=== PATIENT | male | born 1945 | race Caucasian/White ===

== ENCOUNTER 2016-12-07 04:49 | Inpatient (IN) | payer MEDICARE, OTHER ==
[~2016-12-07] VITALS: Ht 177.8 cm; Wt 78.2 kg
[~2016-12-07 04:49] MED LIST: BAYER CHEWABLE81 MG PO; CRESTOR10 MG PO; PRILOSEC20 MG PO; PROPRANOLOL HCL60 M1 PO; PROZAC20 MG PO; XANAX0.5 MG PO
[2016-12-07 05:18] LABS: APPEARANCE CLEAR (CLEAR); BILIRUBIN NEGATIVE (NEGATIVE); COLOR YELLOW (YELLOW); GLUCOSE NEGATIVE (NEGATIVE); KETONE NEGATIVE (NEGATIVE); LEUKOCYTE ESTERASE NEGATIVE (NEGATIVE); NITRITE NEGATIVE (NEGATIVE); PROTEIN NEGATIVE (NEGATIVE); UROBILINOGEN NORMAL (NORMAL)
[2016-12-07 05:26] LABS: BASOPHILS 0.1 % (0.0-2.0); EOSINOPHILS 0 % (0-7); HEMOGLOBIN 13.9 g/dL (13.5-17.5); LYMPHOCYTES 4.3 % (15-50); MCHC 34.8 g/dL (31.0-37.0); MEAN PLATELET VOLUME 9.6 fL (7.4-10.4); MONOCYTES 7.1 % (2-11); NEUTROPHILS 87.5 % (40-80); PLATELET COUNT 107 10x3/uL (130-400); RBC 4.21 10x6/uL (4.20-6.10); RDW 14.7 % (11.5-14.5); WBC 18.4 10x3/uL (4.8-10.8)
[2016-12-07 05:36] LABS: ALBUMIN 3.5 g/dL (3.4-5.0); ANION GAP 13.7 mmol/L (8-16); BILIRUBIN - TOTAL 1.8 mg/dL (0.2-1.3); CALCIUM 8.6 mg/dL (8.5-10.1); CARBON DIOXIDE 26.8 mmol/L (21.0-32.0); CREATININE - SERUM 1.1 mg/dL (0.6-1.3); POTASSIUM - SERUM 3.5 mmol/L (3.5-5.1); PROTEIN - SERUM 7.2 g/dL (6.4-8.2)
[2016-12-07 08:00] VITALS: BP 184/86
--- NOTE | 2016-12-07 11:17 | NUR ---
ARRIVE TO ROOM VIA WHEELCHAIR FROM ER. REPORT GIVEN BY ANDREA POE. ALERT AND ORIENTED X4. LT FA PATENT SL. SWAB CAP ON. AMBULATES TO BED. GAIT STEADY. DENIES SOB. DENIES PAIN. COMPLAINS OF BEING COLD. EXPLAIN WHY NO EXTRA BLANKETS GIVEN DUE TO 100.2 TEMPERATURE. CONITNUE ADMISSION PROCESS. REFUSE SCDs DUE TO REDNESS AND SWELLING IN RT ANKLE. BED LOCKED AND LOW. CALL LIGHT IN REACH. TWO SIDERAILS UP.
[2016-12-07] MEDS ORDERED: MYSOLINE 50 MG50 MG PO (11:58)
[2016-12-07] MEDS ORDERED: VITAMIN B-121000 MCG PO (11:58)
[2016-12-07 13:13] VITALS: BP 165/73; BMI 25.8
[2016-12-07 15:46] VITALS: BP 194/94
--- NOTE | 2016-12-07 19:44 | NUR ---
RESUMED CARE OF PT, PT SLEEPING, IV-LFA-SL, CALL LIGHT IN REACH, BED IS LOW, SRX2, WILL CONTINUE TO MONITOR
[2016-12-08] VITALS: BP 179/81
--- NOTE | 2016-12-08 02:31 | NUR ---
PT LAYING IN BED NO DISTRESS OBSERVED CALL LIGHT INREA SRX2 BED LOW AND LOCKED WILL MONITOR
[2016-12-08 04:00] VITALS: BP 147/70
[2016-12-08 05:51] LABS: BASOPHILS 0.1 % (0.0-2.0); EOSINOPHILS 0 % (0-7); HEMATOCRIT 38.3 % (42.0-54.0); HEMOGLOBIN 13.2 g/dL (13.5-17.5); IMMATURE GRANULOCYTES 0.3 % (0-5); LYMPHOCYTES 8.2 % (15-50); MCH 33.1 pg (26.0-34.0); MCHC 34.5 g/dL (31.0-37.0); MEAN PLATELET VOLUME 10.3 fL (7.4-10.4); MONOCYTES 7.4 % (2-11); RBC 3.99 10x6/uL (4.20-6.10); RDW 14.6 % (11.5-14.5); WBC 14.4 10x3/uL (4.8-10.8)
[2016-12-08 06:09] LABS: CALC OSMOLALITY 269 mosm/kg (275-300); CARBON DIOXIDE 27.6 mmol/L (21.0-32.0); CHLORIDE - SERUM 97 mmol/L (98-107); GLUCOSE 83 mg/dL (74-106); POTASSIUM - SERUM 3.4 mmol/L (3.5-5.1); SODIUM 136 mmol/L (136-145); UREA NITROGEN 10 mg/dL (7-18); eGFR NON AFRICAN AMERICAN 79 mL/min (90-120)
[2016-12-08 06:21] LABS: PLATELET COUNT 82 10x3/uL (130-400)
[2016-12-08 07:33] LABS: PLATELET ESTIMATE DECREASED
[2016-12-08 07:46] VITALS: BP 168/78
--- NOTE | 2016-12-08 08:24 | HP ---
PATIENT: SHADY VELEZ MEDICAL RECORD: [id number] ACCOUNT: [id number] LOCATION:[address] : 49 ADMISSION DATE: 12/07/16 HISTORY AND PHYSICAL EXAMINATION Admission History and Physical DATE OF ADMISSION: 12/07/2016 CHIEF COMPLAINT: Nausea, vomiting, fever, cough for 3 days. HISTORY OF PRESENT ILLNESS: This is a 71-year-old white male who gets his medical care at the [facility] in [place], he lives in [place]. He started with acute onset of fevers, chills, nausea, vomiting, and cough about 10:00 p.m. on 12/04/2016. He came to the ER last night or early this morning with above complaints. Upon presentation, his temperature was 100.9 and a blood pressure of 180/103. His temperature went up to 103.5 while in the ER. His influenzae tests were negative. Chest x-ray did not show any acute infiltrate. His sodium was little low at 130. White count is up to 18,000 and low platelets at 107,000 and he also was noted to have pain and swelling and redness to the right ankle. He denies any trauma. He states this all started about the same time that his other symptoms started on Wednesday night. He is admitted for further treatment. PAST MEDICAL HISTORY: Hypertension, hyperlipidemia, anxiety and depression, and also had reflux. PAST SURGICAL HISTORY: Lizbeth fundoplication and he had a ganglion cyst removed. ALLERGIES: SHELLFISH. HOME MEDICATIONS: Aspirin 81 mg once a day, omeprazole 20 mg twice a day, Crestor 10 mg once a day, propranolol 60 mg twice a day, primidone 50 mg once a day, vitamin B12 once a day. HABITS: Former smoker, quit 27 years ago. Has an occasional beer. No drugs. SOCIAL HISTORY: He is , retired . FAMILY HISTORY: Father at 79 of an CA. He also had Parkinson's. Mother at 99 of old age. She had a pacemaker placed and has lower extremity edema. One sister with heart trouble, another with mental problems. Brother was injured in the war and has a lot of resultant problems from that. REVIEW OF SYSTEMS: GENERAL: No major weight changes. HEENT: No sinus or allergy problems. RESPIRATORY: No history of emphysema or asthma. CARDIAC: No chest pain or palpitations. GASTROINTESTINAL: Has history of reflux and has had a Lizbeth fundoplication. GENITOURINARY: No significant problems there. MUSCULOSKELETAL: No significant arthritic aches and pains. NEUROLOGIC: No migraines or seizures. PSYCHIATRIC: Has anxiety and depression. HISTORY AND PHYSICAL [id number] VELEZSHADY Cross PHYSICAL EXAMINATION: VITAL SIGNS: Temperature 98.2, pulse 91, respirations 16, blood pressure 165/73. GENERAL: He is awake and alert, lying on right side. He is feeling better since he has some IV fluids in. HEENT: Grossly within normal limits. NECK: Supple with no bruits. HEART: Regular rate and rhythm without murmur. LUNGS: Fairly clear. ABDOMEN: Soft, flat, nontender. EXTREMITIES: Right lower extremity, he has increased erythema, some mild swelling and redness to the lateral aspect of the ankle. There is no open wound. LABORATORY DATA: Urinalysis is normal. Basic metabolic panel is all okay except sodium was 130. LFTs were okay except total bilirubin a little elevated at 1.8. CBC with a white count of 18,400, hemoglobin 13.9, platelets number 107,000. DIAGNOSTIC DATA: Chest x-ray shows no acute process. ASSESSMENT: 1. Fever, chills, nausea, vomiting, and cough that sounds like influenza. His rapid influenza test was negative and he is out of the 48-hour window of opportunity to treat. 2. Cellulitis of the right foot and ankle. 3. Bronchitis. PLAN: Start him on antibiotics, nausea medicine and IV fluids. Other tests and procedures as warranted. TRANSINT:[id number] Voice Confirmation ID: [id number] DOCUMENT ID: [id number] LULY PEREIRA MD at 0824 CC: [id number] DICTATION DATE: 12/07/161422 LAMBSKIN TRIMMER: 12/07/16 1457 ADM IN [facility] [address] [place] [address]
[2016-12-08 11:37] VITALS: BP 146/73
[2016-12-08 13:41] VITALS: Ht 177.8 cm; Wt 78.2 kg
[2016-12-08 15:26] VITALS: BP 181/81
--- NOTE | 2016-12-08 18:17 | NUR ---
RESTING IN BED. ALERT AND ORIENTED X4. DENIES SOB. RT LEG INFECTION SPREADING UP LEG. NEW ANTIBIOTIC ORDERED PER . INTERMITTENT RT LEG DISCOMFORT. DENIES NEEDING PAIN MEDICATION. CONTINUE PLAN OF CARE. BED LOCKED AND LOW. CALL LIGHT IN REACH. TWO SIDERAILS UP. RECIEVES LOVENOX INJ.
[2016-12-08 19:00] VITALS: BP 169/77
--- NOTE | 2016-12-08 20:00 | NUR ---
PT AWAKE, ALERT, ORIENTED, DENIES ANY NEEDS. CONTINUE TO MONITOR CLOSELY.
[2016-12-09] VITALS: BP 151/77
--- NOTE | 2016-12-09 00:50 | NUR ---
PT WAS FOUND IN THE [place], CONFUSED, DISORIENTED, JEANS OVER HIS SCRUB PANTS AND HOSPITAL GOWN ON, WITH HIS PERSONAL BELONGINGS BAG. WHEN ASKED IF HE WAS OK, PT STATED THAT HE WOKE UP OUTSIDE AND DID NOT KNOW WHERE HE IS AT THIS TIME. PT WAS RETURNED TO HIS ROOM WITHOUT ANY DIFFICULTY. PT DID DEFICATE ON HIMSELF DURING THIS BOUT OF CONFUSION. PT DID RECEIVE PRN AMBIEN FOR SLEEP DURING HIS 2100 MEDICATION ADMINISTRATION. PT WAS CLEANED UP, PLACED BACK INTO BED, BED ALARM ON, DOOR OPEN, CONTINUE TO MONITOR CLOSELY AND FREQUENTLY.
--- NOTE | 2016-12-09 03:39 | NUR ---
PT REMAINS CONFUSED AND DISORIENTED, HE CONTINUES TO GET OUT OF BED NOT KNOWING WHERE HE IS. PT HAS BEEN PLACED BACK INTO BED WITHOUT DIFFICULTY, BED ALARM ON. CONTINUE TO MONITOR CLOSELY.
[2016-12-09 04:00] VITALS: BP 159/72
[2016-12-09 07:14] LABS: CALC OSMOLALITY 263 mosm/kg (275-300); CHLORIDE - SERUM 96 mmol/L (98-107); CREATININE - SERUM 0.9 mg/dL (0.6-1.3); GLUCOSE 89 mg/dL (74-106); SODIUM 133 mmol/L (136-145); UREA NITROGEN 11 mg/dL (7-18); eGFR NON AFRICAN AMERICAN 89 mL/min (90-120)
[2016-12-09 07:17] LABS: BASOPHILS 0.1 % (0.0-2.0); EOSINOPHILS 0.1 % (0-7); HEMATOCRIT 35.6 % (42.0-54.0); HEMOGLOBIN 12.4 g/dL (13.5-17.5); IMMATURE GRANULOCYTES 0.4 % (0-5); LYMPHOCYTES 10.3 % (15-50); MCHC 34.8 g/dL (31.0-37.0); MCV 94.7 fL (80.0-100.0); MEAN PLATELET VOLUME 10.6 fL (7.4-10.4); MONOCYTES 11.3 % (2-11); NEUTROPHILS 77.8 % (40-80); PLATELET COUNT 91 10x3/uL (130-400); RBC 3.76 10x6/uL (4.20-6.10); RDW 14.2 % (11.5-14.5); WBC 11.3 10x3/uL (4.8-10.8)
[2016-12-09 08:02] VITALS: BP 155/77
[2016-12-09 16:00] VITALS: BP 147/68
--- NOTE | 2016-12-09 19:41 | NUR ---
RESUMED CARE OF PT, LYING IN BED RESPIRATIONS EVEN AND UNLABORED ON ROOM AIR. LEFT FOREARM SALINE LOCKED. NO NEEDS VOICED AT THIS TIME. WILL CONTINUE TO MONITOR. SEE NURSE ASSESSMENT. CALL LIGHT IN REACH.
[2016-12-09 20:00] VITALS: BP 171/83
[2016-12-10] VITALS: BP 181/91
[2016-12-10 04:00] VITALS: BP 167/80
--- NOTE | 2016-12-10 04:10 | NUR ---
DIETARY COOK AT BEDSIDE TO OBTAIN VITALS, CALL LIGHT IN REACH. WILL CONTINUE WITH PLAN OF CARE.
[2016-12-10 06:07] LABS: BASOPHILS 0.2 % (0.0-2.0); EOSINOPHILS 0.4 % (0-7); HEMOGLOBIN 11.8 g/dL (13.5-17.5); IMMATURE GRANULOCYTES 0.7 % (0-5); LYMPHOCYTES 15.4 % (15-50); MCH 32.3 pg (26.0-34.0); MCHC 34.7 g/dL (31.0-37.0); MCV 93.2 fL (80.0-100.0); MONOCYTES 18.1 % (2-11); NEUTROPHILS 65.2 % (40-80); PLATELET COUNT 90 10x3/uL (130-400); RBC 3.65 10x6/uL (4.20-6.10); RDW 13.9 % (11.5-14.5); WBC 9.4 10x3/uL (4.8-10.8)
[2016-12-10 06:33] LABS: CALC OSMOLALITY 263 mosm/kg (275-300); CALCIUM 7.9 mg/dL (8.5-10.1); CARBON DIOXIDE 28.4 mmol/L (21.0-32.0); CHLORIDE - SERUM 95 mmol/L (98-107); CREATININE - SERUM 0.9 mg/dL (0.6-1.3); GLUCOSE 95 mg/dL (74-106); SODIUM 132 mmol/L (136-145); UREA NITROGEN 9 mg/dL (7-18); eGFR NON AFRICAN AMERICAN 89 mL/min (90-120)
--- NOTE | 2016-12-10 07:12 | NUR ---
PT SITTING UP IN BED DENIES NEEDS AT THIS TIME WILL CONTINUE TO MONITOR.
[2016-12-10 08:02] VITALS: BP 154/79
[2016-12-10 12:14] VITALS: BP 148/66
--- NOTE | 2016-12-10 12:51 | NUR ---
Nutrition follow-up: Diet: Regular with 1 beer @ dinner; Ensure with meals PO intake ~25% of meals at this time +BM Labs reviewed Pt has been confused per nursing PO intake poor at this time Will continue to provide food choices with selective menus and nutritional supplements. Pt may benefit from an appetite stimulant. RDN following.
[2016-12-10 16:23] VITALS: BP 167/74
--- NOTE | 2016-12-10 17:46 | NUR ---
PT SITTING UP IN BED LYDIA NEEDS
--- NOTE | 2016-12-10 19:30 | NUR ---
RESUMED CARE, IV-LFA-SL, SLEEPING, BED IS LOW, SRX2, CALL LIGHT IN REACH, WILL CONTINUE TO MONITOR
[2016-12-10 20:00] VITALS: BP 186/93
[2016-12-11] VITALS: BP 164/84
[2016-12-11 04:00] VITALS: BP 146/72
--- NOTE | 2016-12-11 04:04 | NUR ---
NATURAL GAS ENGINEER AT BEDSIDE TO OBTAIN VITALS, CALL LIGHT IN REACH. WILL CONTINUE TO MONITOR.
--- NOTE | 2016-12-11 04:16 | NUR ---
LYING QUIETLY, DENIES ANY NEEDS, CALL LIGHT IN REACH, BED IS LOW
[2016-12-11 06:21] LABS: BASOPHILS 0.3 % (0.0-2.0); EOSINOPHILS 1.2 % (0-7); HEMATOCRIT 35.6 % (42.0-54.0); HEMOGLOBIN 12.3 g/dL (13.5-17.5); IMMATURE GRANULOCYTES 0.5 % (0-5); LYMPHOCYTES 20.4 % (15-50); MCH 32.5 pg (26.0-34.0); MCHC 34.6 g/dL (31.0-37.0); MCV 94.2 fL (80.0-100.0); MEAN PLATELET VOLUME 9.9 fL (7.4-10.4); MONOCYTES 20.9 % (2-11); NEUTROPHILS 56.7 % (40-80); PLATELET COUNT 107 10x3/uL (130-400); RBC 3.78 10x6/uL (4.20-6.10); RDW 13.8 % (11.5-14.5)
[2016-12-11 06:23] LABS: WBC 5.9 10x3/uL (4.8-10.8)
[2016-12-11 06:43] LABS: CALC OSMOLALITY 264 mosm/kg (275-300); CALCIUM 7.9 mg/dL (8.5-10.1); CARBON DIOXIDE 28.7 mmol/L (21.0-32.0); CHLORIDE - SERUM 97 mmol/L (98-107); CREATININE - SERUM 0.9 mg/dL (0.6-1.3); GLUCOSE 116 mg/dL (74-106); POTASSIUM - SERUM 3.1 mmol/L (3.5-5.1); SODIUM 133 mmol/L (136-145); UREA NITROGEN 8 mg/dL (7-18); eGFR NON AFRICAN AMERICAN 89 mL/min (90-120)
[2016-12-11 07:51] VITALS: BP 175/78
--- NOTE | 2016-12-11 08:06 | NUR ---
AM ROUNDING- PT LAYING IN BED ON BACK RESTING WITH EYES OPEN. DENIES ANY NEED AT CURRENT TIME. IV SEEN TO LEFT FOREARM SALINE LOCKED AND PATENT. ON ROOM AIR. NO MONITOR. REDNESS WITH SLIGHT SWELLING SEEN TO RIGHT LEG. PT IS ON LOVENOX INJECTIONS FOR DVT PREVENTION. WILL CONTINUE TO MONITOR
--- NOTE | 2016-12-11 08:28 | NUR ---
CALLED DR. HASKINS OFFICE TO INFORM HIM OF PTS POTASSIUM BEING 3.1. SPOKE WITH CAROLYN, HIS NURSE. CAROLYN STATED SHE WOULD LET HIM KNOW WHEN HE GOT TO THE OFFICE AND HAVE HIM CALL ME. AWAITING CALLBACK.
--- NOTE | 2016-12-11 09:06 | NUR ---
0900- DR. PEREIRA CALLED BACK WITH NEW ORDERS. DR. PEREIRA INFORMED ME TO PLACE PT ON EP. WILL DO ORDERED AND CONTINUE TO MONITOR.
[2016-12-11 12:00] VITALS: BP 139/74
[2016-12-11 15:58] VITALS: BP 155/72
--- NOTE | 2016-12-11 16:43 | NUR ---
Patient Name: SHADY VELEZ Admission Status: ER Accout number: [id number] Admission Date: 12-07-2016 : 1945 Admission Diagnosis:COUGH Attending: HAL Current LOS: 4 Anticipated DC Date: Planned Disposition: Home Primary Insurance: MEDICARE A & B Discharge Planning Comments: * Is the patient Alert and Oriented? Yes 0 * How many steps to enter\exit or inside your home? NONE 0 * PCP DR. ANGELICA AYALA, [facility], [place] 0 * Pharmacy [place] OR [facility] 0 * Preadmission Environment Home Alone 0 * ADLs Independent 0 * Equipment None 0 * Other Equipment [place] - MEDICAL EQUIPMENT PROVIDER 0 * List name and contact numbers for known caregivers / representatives who currently or will assist patient after discharge: LISA REYNAER, 0 * Community resources currently utilized Other 0 * Please name any agencies selected above. HOUSEKEEPING, PRIVATE PAY, 1X EVERY 2 WEEKS 0 * Additional services required to return to the preadmission environment? No 0 * Can the patient safely return to the preadmission environment? Yes 0 * Has this patient been hospitalized within the prior 30 days at any hospital? No 0 CM MET WITH PT IN ROOM TO DISCUSS DISCHARGE PLANNING AND NEEDS. PT REPORTS LIVING AT HOME INDEPENDENTLY AND ALONE. PT HAS NO MEDICAL EQUIPMENT AND NO OUTSIDE SERVICES ASSISTING IN THE HOME. CM DISCUSSED AVAILABILITY OF HOME HEALTH, REHAB SERVICES AND MEDICAL EQUIPMENT. PT DENIES DISCHARGE NEEDS, REPORTS HIS CAR IS HERE AND HE WILL DRIVE HIMSELF HOME AT DISCHARGE. PT DENIES DISHCARGE NEEDS, CM TO FOLLOW AND ASSIST IF NEEDED. Quarry Plant Crusher Operator: Rickie Shaikh
--- NOTE | 2016-12-11 17:59 | NUR ---
PT SITTING UP ON SIDE OF THE BED EATING DINNER. DENIES ANY NEED AT CURRENT TIME. WILL CONTINUE TO MONITOR.
[2016-12-11 20:00] VITALS: BP 169/84
--- NOTE | 2016-12-11 20:00 | NUR ---
RESTING IN BED. ALERT/ORIENTED. NONLABORED REPSIRATIONS ON ROOM AIR. SALINE LOCK TO LFA. CPOC. CALL LIGHT IN REACH.
[2016-12-12] VITALS: BP 164/71
[2016-12-12 04:00] VITALS: BP 168/80
[2016-12-12 06:51] LABS: HEMATOCRIT 35.8 % (42.0-54.0); HEMOGLOBIN 12.2 g/dL (13.5-17.5); MCH 32.5 pg (26.0-34.0); MCHC 34.1 g/dL (31.0-37.0); MCV 95.5 fL (80.0-100.0); MEAN PLATELET VOLUME 10.2 fL (7.4-10.4); PLATELET COUNT 107 10x3/uL (130-400); RBC 3.75 10x6/uL (4.20-6.10); RDW 14.1 % (11.5-14.5); WBC 4.8 10x3/uL (4.8-10.8)
--- NOTE | 2016-12-12 07:00 | NUR ---
RECEIVED REPORT. ASSUMED CARE OF PATIENT. CALL LIGHT WITHIN REACH. DENIES PAIN. RESP EVEN AND UNLABORED. PATEINT STATES HE FEELS 1000% BETTER THAN WHEN HE WALKED IN HERE. NO DISTRESS. REQUESTING FRESH ICE WATER AT THIS TIME.
[2016-12-12 07:07] LABS: CALC OSMOLALITY 273 mosm/kg (275-300); CALCIUM 7.8 mg/dL (8.5-10.1); CARBON DIOXIDE 27.2 mmol/L (21.0-32.0); CHLORIDE - SERUM 102 mmol/L (98-107); CREATININE - SERUM 0.8 mg/dL (0.6-1.3); GLUCOSE 93 mg/dL (74-106); SODIUM 138 mmol/L (136-145); UREA NITROGEN 7 mg/dL (7-18); eGFR NON AFRICAN AMERICAN > 90 mL/min (90-120)
[2016-12-12 07:13] LABS: POTASSIUM - SERUM 3.2 mmol/L (3.5-5.1)
[2016-12-12 07:18] LABS: EOSINOPHILS 1 % (0-7); LYMPHOCYTES 27 % (15-50); MONOCYTES 12 % (2-11); NEUTROPHILS 57 % (40-80); PLATELET ESTIMATE DECREASED
--- NOTE | 2016-12-12 07:35 | NUR ---
FRESH ICE WATER PROVIDED UPON REQUEST AT THIS TIME. NO DISTRESS.
[2016-12-12 08:02] VITALS: BP 184/84
[2016-12-12 11:18] VITALS: BP 129/66
--- NOTE | 2016-12-12 12:10 | NUR ---
RESTING IN BED WITH EYES OPEN. CONSUMING NOON MEAL. CALL LIGHT WITHIN REACH. RECEIVING IV VANC AT THIS TIME. NO DISTRESS.
--- NOTE | 2016-12-12 15:23 | NUR ---
PATIENT RESTING WELL IN BED WITH EYES OPEN. PATIENT DENIES PAIN. NO DISTRESS NOTED. CALL LIGHT WITH IN REACH. DENIES NEEDS AT THIS TIME.
[2016-12-12 15:50] VITALS: BP 138/74
--- NOTE | 2016-12-12 17:56 | NUR ---
SITTING TO SIDE OF BED, FINISHING PM MEAL. CALL LIGHT WITHIN REACH. DENIES NEEDS. DENIES PAIN. NO DISTRESS. PATIENT COMPLIMENTING ON HOW WELL HE IS BEING FED AT THE HOSPITAL. NO DISTRESS.
[2016-12-12 20:28] VITALS: BP 172/84
[2016-12-13 00:19] VITALS: BP 184/88
--- NOTE | 2016-12-13 03:59 | NUR ---
ASSESSED AT THE BEGINNING OF THE SHIFT. PT IS ALERT AND ORIENTED, ABLE TO VERBALIZE NEEDS. HE HAS HEALING CELLULITUS TO THE RIGHT LOWER LEG BUT THE EDEMA AND REDNESS HAVE GONE WAY DOWN. HE IS ABLE TO TURN AND REPOSITION HIMSELF FOR COMFORT AND GET UP TO THE BATHROOM AD VIRGEN. WE RESTARTED HIS IV TO TO THE LEFT HAND DUE TO THE REDNESS AROUND HIS ORIGINAL SITE ON HIS LEFT FOREARM. THE BED IS LOW, RAILS UP X'S 2 WITH THE CALL LIGHT AT HAND.
[2016-12-13 05:17] VITALS: BP 186/80
--- NOTE | 2016-12-13 07:05 | NUR ---
RECEIVED REPORT. ASSUMED CARE OF PATIENT. PATIENT WITH EYES OPEN, READING NEWSPAPER. RESP EVEN AND UNLABORED. CALL LIGHT WIHTIN REACH. DENIES NEEDS. NO DISTRESS.
[2016-12-13 07:41] VITALS: BP 172/78
[2016-12-13 11:23] VITALS: BP 129/67
--- NOTE | 2016-12-13 11:30 | NUR ---
PATIENT RESTING IN BED WITH EYES OPEN. CALL LIGHT WITHIN REACH. DENIES PAIN. NO DISTRESS.
[2016-12-13 15:24] VITALS: BP 118/57
--- NOTE | 2016-12-13 16:00 | NUR ---
CALLED AND SPOKE WITH BRENDA IN PHARMACY IN REGARDS TO ADMINISTERING 1600 DOSE OF VANCOMYCIN SINCE VANC TROUGH WAS HIGH THIS AM. BRENDA STATED THAT IT HAS BEEN 12 HOURS SINCE PRIOR ADMINISTRATION AND THE NUMBER DOSAGE/ NUMBER OF TIMES PER DAY HAS BEEN DECREASED BY HER DUE TO PHARMACY IS ADJUSTING THE DOSE. THANKED BRENDA FOR CLARIFICATION AND WILL ADMINISTER VANC DOSE DUE AT THIS TIME.
--- NOTE | 2016-12-13 18:45 | NUR ---
PATIENT RESTING IN BED WITH EYES OPEN. RESP EVEN AND UNLABORED. NO DISTRESS. DENIES NEEDS AT THIS TIME.
[2016-12-13 19:00] VITALS: BP 158/91
--- NOTE | 2016-12-13 19:41 | NUR ---
RESUMED CARE OF PT, LYING QUIETLY IN BED, DENIES ANY NEEDS,HAD DAY SHIFT CHARGE CELL PHONE, I TOOK CELL PHONE BACK TO HIM, IV-L.HAND-SL,DENIES ANY NEEDS, CALL LIGHT IN REACH, WILL CONTINUE TO MONITOR
[2016-12-14] VITALS (7 sets, daily range): BP systolic 134–177; BP diastolic 69–89
--- NOTE | 2016-12-14 03:50 | NUR ---
LYING QUIETLY , WATCHING TV, DENIES ANY NEEDS, CALL LIGHT IN REACH
--- NOTE | 2016-12-14 05:59 | NUR ---
NO CHANGES FROM PREVIOUS ASSESSMENT, CALL LIGHT IN REACH. WILL CONTINUE WITH PLAN OF CARE.
--- NOTE | 2016-12-14 07:30 | NUR ---
RESTING QUIETLY NAD DENIES ANY NEEDS OR DISCOMFORT
--- NOTE | 2016-12-14 07:58 | NUR ---
ASSESSEMENT DONE. PT A/O WATCHING TV. NO DISTRESS NOTED. DENIES NEEDS. WANTS TO GO HOME. RIGHT LOWER LEG WITH SLIGHT REDNESS, NO WARMTH, PITTING EDEMA. CALL LIGHT WITH IN REACH. WILL CONT. TO MONITOR.
--- NOTE | 2016-12-14 11:22 | NUR ---
PT SITTING UP IN BED WATCHING TV. A/O. DENIES NEEDS AT THIS TIME. CALL LIGHT WITH IN REACH. WILL CONT. TO MONITOR.
--- NOTE | 2016-12-14 17:15 | NUR ---
VANCOMYCIN IS NOT AVAILABLE. CALLED PHARMACY TO BRING UP.
--- NOTE | 2016-12-14 17:32 | NUR ---
PT SITTING ON SIDE OF BED. EATING SUPPER. REQUEST ICE WATER. DENIES OTHER NEEDS AT THIS TIME. CALL LIGHT WITH IN REACH. WILL CONT. TO MONITOR.
--- NOTE | 2016-12-14 19:37 | NUR ---
RESUMED CARE OF PT, IV-L.HAND-VANCOMYCIN INFUSING, DENIES ANY NEEDS, CALL LIGHT IN REACH, BED IS LOW, SRX2
--- NOTE | 2016-12-15 03:56 | NUR ---
SLEEPING WITHOUT ANY DISTRESS.
[2016-12-15 05:12] VITALS: BP 175/90
--- NOTE | 2016-12-15 06:18 | NUR ---
AWAKEN FOR AM MED. PATIENT STATES HE SLEPT WELL.
--- NOTE | 2016-12-15 07:00 | NUR ---
PT WAS RECEIVED AT BEGINNING OF SHIFT AWAKE AND IN BED. ORIENTED X 3. NO VOICED COMPLAINTS. LEFT HAND IV THAT IS SALINE LOCKED. WILL BE MONITORING AND ASSISTING PRN WITH ADL'S. NO SIGNS OF ANY DISCOMFORT OR DISTRESS. CALL LIGHT IS IN REACH.
[2016-12-15 08:31] VITALS: BP 171/84
[2016-12-15 11:42] VITALS: BP 159/76
--- NOTE | 2016-12-15 13:17 | NUR ---
Nutrition follow-up: Diet: Regular with 1 beer with dinner; Ensure with meals Labs reviewed PO intake 100% of meals +BM Wt: 172# RDN following.
[2016-12-15] MEDS ORDERED: VIBRAMYCIN 100100 MG PO (13:41)
--- NOTE | 2016-12-15 14:07 | NUR ---
DR. PEREIRA ROUNDED THIS AFTERNOON AND NEW ORDER RECEIVED FOR DISCHARGE.
--- NOTE | 2016-12-15 15:19 | NUR ---
Patient Name: SHADY VELEZ Encounter No: [id number] : 1945 Primary Insurance: MEDICARE A & B Anticipated DC Date: 12-15-2016 Planned Disposition: Home DCP follow-up note: CM MET WITH PT IN ROOM TO DISCUSS DISCHARGE NEEDS AND PLANNING. CM DISCUSSED AVAILABILITY OF HOME HEALTH, REHAB SERVICES AND MEDICAL EQUIPMENT. PT DENIES DISCHARGE NEEDS. PT WILL DRIVE HIMSELF HOME DISCHARGE. HIS CAR IS PARKED IN THE PARKING LOT. IMPORTANT MESSAGE FROM MEDICARE PROVIDED AND EXPLAINED. Rickie Shaikh, CASE MANAGEMENT
[2016-12-15 15:51] VITALS: BP 156/77
--- NOTE | 2016-12-15 16:05 | NUR ---
IV TO RT. HAND DCD CATH INTACT. NO REDNESS OR EDEMA AT SITE, SECURED WITH 2X2 AND PAPER TAPE.
== END 2016-12-15 16:54 | disposition home or self-care (01) | DRG 603 ==
LOC: D.ER 04:49 → D.M2 10:52
PROVIDERS: Family Medicine; ADMIT Family Medicine
DX: L03.115 Cellulitis of right lower limb (principal); I10 Essential (primary) hypertension; J20.9 Acute bronchitis, unspecified; E87.6 Hypokalemia; R51 Headache

== ENCOUNTER 2017-10-08 10:47 | Emergency (ER) | payer MEDICARE, OTHER ==
[2016-12-08 13:41] VITALS: BMI 25.8
[~2017-10-08 10:47] MED LIST changes: +MYSOLINE 50 MG50 MG PO; +VIBRAMYCIN 100100 MG PO; +VITAMIN B-121000 MCG PO
== END 2017-10-08 13:51 | disposition home or self-care (01) ==
LOC: D.ER 10:47
DX: L25.9 Unspecified contact dermatitis, unspecified cause (principal)

== ENCOUNTER 2019-05-20 03:49 | Emergency (ER) | payer MEDICARE, OTHER ==
[~2019-05-20] VITALS: Ht 177.8 cm; Wt 84.1 kg
[2019-05-20 03:52] VITALS: Ht 177.8 cm; Wt 84.1 kg
[2019-05-20] MEDS ORDERED: NEURONTIN 300300 MG PO (03:53)
[2019-05-20] MEDS ORDERED: OMEPRAZOLE20 M1 PO (03:53)
[2019-05-20] MEDS ORDERED: MYSOLINE 50 MG50 MG PO (03:54)
[2019-05-20] MEDS ORDERED: EFFEXOR100 MG PO (03:54)
[2019-05-20] MEDS ORDERED: PROZAC20 MG PO (03:54)
[2019-05-20] MEDS ORDERED: PROPRANOLOL HCL20 MG PO (03:54)
[2019-05-20] MEDS ORDERED: BUSPAR10 MG PO (03:55)
[2019-05-20 04:09] LABS: BASOPHILS 1.2 % (0-2); EOSINOPHILS 11.6 % (0-7); HEMATOCRIT 38.1 % (42.0-54.0); HEMOGLOBIN 13.7 g/dL (13.5-17.5); IMMATURE GRANULOCYTES 0.6 % (0-5); MCH 33.7 pg (26.0-34.0); MCV 93.6 fL (80.0-100.0); MEAN PLATELET VOLUME 9.3 fL (7.4-10.4); MONOCYTES 17.1 % (2-11); NEUTROPHILS 37.5 % (40-80); RBC 4.07 10x6/uL (4.20-6.10); RDW 12.1 % (11.5-14.5); WBC 5.2 10x3/uL (4.8-10.8)
[2019-05-20 04:11] LABS: PLATELET COUNT 148 10x3/uL (130-400)
[2019-05-20 04:21] LABS: APTT 30.2 SECONDS (22.8-39.4); PROTIME 12.7 SECONDS (11.6-15.0)
[2019-05-20 04:26] LABS: ALBUMIN 3.1 g/dL (3.4-5.0); ALKALINE PHOSPHATASE 56 U/L (46-116); ALT (SGPT) 29 U/L (10-68); BILIRUBIN - TOTAL 0.49 mg/dL (0.2-1.3); CALC OSMOLALITY 263 mosm/kg (275-300); CALCIUM 8.3 mg/dL (8.5-10.1); CHLORIDE - SERUM 97 mmol/L (98-107); CREATININE - SERUM 0.8 mg/dL (0.6-1.3); GLUCOSE 88 mg/dL (74-106); PROTEIN - SERUM 6.5 g/dL (6.4-8.2); SODIUM 134 mmol/L (136-145); UREA NITROGEN 4 mg/dL (7-18); eGFR NON AFRICAN AMERICAN > 90 mL/min (90-120)
[2019-05-20 04:39] LABS: CKMB 1.6 U/L (0.0-3.6); CREATINE KINASE 53 UL (21-232); PRO BNP 110 pg/mL (0-125); TROPONIN-I < 0.017 ng/mL (0.000-0.060)
[2019-05-20] MEDS ORDERED: AUGMENTIN 875-11 TAB PO (05:25)
[2019-05-20] MEDS ORDERED: ALBUTEROL SULF8.5 GM INH (05:26)
[2019-05-20 05:53] VITALS: BP 182/87
== END 2019-05-20 05:54 | disposition home or self-care (01) ==
LOC: D.ER 03:49
PROVIDERS: Family Medicine
DX: J40 Bronchitis, not specified as acute or chronic (principal); R05 Cough

== ENCOUNTER 2020-05-10 08:44 | Emergency (ER) | payer OTHER ==
[~2020-05-10] VITALS: Ht 177.8 cm; Wt 92.3 kg
[~2020-05-10 08:44] MED LIST changes: +ALBUTEROL SULF8.5 GM INH; +AUGMENTIN 875-11 TAB PO; +BUSPAR10 MG PO; +EFFEXOR100 MG PO; +NEURONTIN 300300 MG PO; +OMEPRAZOLE20 M1 PO; +PROPRANOLOL HCL20 MG PO
[2020-05-10 08:51] VITALS: BP 163/93; Ht 177.8 cm; Wt 92.3 kg
[2020-05-10 09:11] LABS: BASOPHILS 0.5 % (0-2); EOSINOPHILS 9.6 % (0-7); HEMATOCRIT 39.3 % (42.0-54.0); HEMOGLOBIN 13.8 g/dL (13.5-17.5); IMMATURE GRANULOCYTES 0.4 % (0-5); LYMPHOCYTES 19.7 % (15-50); MCH 33.7 pg (26.0-34.0); MCHC 35.1 g/dL (31.0-37.0); MCV 96.1 fL (80.0-100.0); MEAN PLATELET VOLUME 9.7 fL (7.4-10.4); MONOCYTES 15.5 % (2-11); NEUTROPHILS 54.3 % (40-80); PLATELET COUNT 136 10x3/uL (130-400); RBC 4.09 10x6/uL (4.20-6.10); RDW 13.2 % (11.5-14.5); WBC 7.5 10x3/uL (4.8-10.8)
[2020-05-10 09:24] LABS: CALC OSMOLALITY 259 mosm/kg (275-300); CALCIUM 8.5 mg/dL (8.5-10.1); CARBON DIOXIDE 32.7 mmol/L (21.0-32.0); CHLORIDE - SERUM 93 mmol/L (98-107); CREATININE - SERUM 0.8 mg/dL (0.6-1.3); GLUCOSE 86 mg/dL (74-106); POTASSIUM - SERUM 3.7 mmol/L (3.5-5.1); SODIUM 131 mmol/L (136-145); UREA NITROGEN 6 mg/dL (7-18); eGFR NON AFRICAN AMERICAN > 90 mL/min (90-120)
[2020-05-10 09:36] LABS: ALBUMIN 3.6 g/dL (3.4-5.0); ALKALINE PHOSPHATASE 60 U/L (30-120); ALT (SGPT) 19 U/L (10-68); BILIRUBIN - TOTAL 0.66 mg/dL (0.2-1.3); PRO BNP 133 pg/mL (0-125); PROTEIN - SERUM 7.5 g/dL (6.4-8.2)
[2020-05-10 10:30] LABS: BILIRUBIN NEGATIVE (NEGATIVE); GLUCOSE NEGATIVE (NEGATIVE); KETONE NEGATIVE (NEGATIVE); NITRITE NEGATIVE (NEGATIVE); UROBILINOGEN NORMAL (NORMAL)
== END 2020-05-10 13:18 | disposition home or self-care (01) ==
LOC: D.ER 08:44
PROVIDERS: Family Medicine
DX: I87.2 Venous insufficiency (chronic) (peripheral) (principal); R60.9 Edema, unspecified; I10 Essential (primary) hypertension